=== PATIENT | male | born 1930 | race Caucasian/White ===

== ENCOUNTER 2017-04-26 07:44 | Emergency (ER) | payer MEDICARE ==
[2017-04-26 07:45] VITALS: BP 144/75
--- NOTE | 2017-04-26 08:16 | PHYS DOC ---
Adult General HPI HPI Patient is a 86-year-old gentleman who presents here today secondary to lacerations to pretibial regions on both legs. Patient reports she woke up this morning and currently with the side of his bed with his left leg. Patient reports he turned around and actually hit the side of his bed with his right leg. Patient presents to the ER today secondary to persistent bleeding to his bilateral lower extremities secondary to bilateral skin tears. Patient is on Coumadin secondary to A. fib with a pacemaker. Patient has no other complaints at this time. Patient reports he's been on the same dose of Coumadin for quite a while. Patient reports his last INR was on Friday and was 1.7. He reports there was no change in his Coumadin dose at that time. Review of systems: Constitutional: Denies fever or chills Eyes: Denies change in visual acuity, redness, or eye pain HENT: Denies nasal congestion or sore throat Respiratory: Denies cough or shortness of breath All other systems were reviewed and found to be within normal limits, except as documented in this note. Physical exam: Constitutional: Well developed, well nourished, no acute distress, non-toxic appearance. HENT: Normocephalic, atraumatic, bilateral external ears normal, nose normal. Eyes: PERRLA, EOMI, conjunctiva normal, no discharge. Neck: Normal range of motion, no tenderness, supple, no stridor. Cardiovascular: Heart rate regular rhythm, Lungs & Thorax: Bilateral breath sounds clear to auscultation Abdomen: No abdominal distention. Skin: Warm, dry, no erythema, no rash. Back: Normal spinal curvature Extremities: No tenderness, no cyanosis, no clubbing, ROM intact, no edema. Neurologic: Alert and oriented X 3, normal motor function, normal sensory function, no focal deficits noted. Psychologic: Affect normal, judgement normal, mood normal. Patient's ER physical exam was most unremarkable: 1. Left lower extremity with a 6 cm laceration to his pretibial area. 2. Right lower extremity with a 8 cm laceration to his pretibial area Assessment and plan: 1. Laceration to left and right lower extremities pretibial region. Bleeding is well-controlled with pressure. Utilizing Dermabond and Steri-Strips the skin was approximated and Dermabond was applied with good repositioning of the skin edges. Steri-Strips were applied to assist with giving strength to the wound closure. Clubbing was then applied a pressure dressing to decrease the amount of subcutaneous bleeding. Patient tolerated procedure well. Procedure: Dermabond applied to 14 cm of laceration to both lower extremities. Physical Exam Physical Exam EKG EKG [] Radiology/Procedures Radiology/Procedures [] Course & Med Decision Making Course & Med Decision Making Pertinent Labs and Imaging studies reviewed. (See chart for details) [] Dragon Disclaimer Dragon Disclaimer This electronic medical record was generated, in whole or in part, using a voice recognition dictation system. Departure Departure: Impression: Primary Impression: Laceration Additional Impression: Anticoagulated by anticoagulation treatment Disposition: 01 HOME, SELF-CARE Condition: IMPROVED Referrals: NON,STAFF (PCP) Patient Instructions: Sterile Tape Wound Closure, Tissue Adhesive Wound Care Problem Qualifiers PHONG TRAN MD Apr 26, 2017 08:16
== END 2017-04-26 08:20 | disposition home or self-care (01) ==
LOC: ER 07:44
DX: S81.812A Laceration without foreign body, left lower leg, initial encounter (principal); S81.811A Laceration without foreign body, right lower leg, initial encounter; I48.91 Unspecified atrial fibrillation; Z95.0 Presence of cardiac pacemaker; Z79.01 Long term (current) use of anticoagulants; W22.03XA Walked into furniture, initial encounter; Y93.89 Activity, other specified; Y99.8 Other external cause status; Y92.89 Other specified places as the place of occurrence of the external cause
CPT/HCPCS: 12005; 99283-25